=== PATIENT | male | born 1990 | race African-American/Black ===

== ENCOUNTER 2019-12-07 17:37 | Emergency (ER) | payer OTHER ==
[~2019-12-07] VITALS: Ht 175.3 cm; Wt 79.4 kg
[2019-12-07 17:51] VITALS: Ht 175.3 cm; Wt 79.4 kg
[2019-12-07 19:27] VITALS: BP 111/85
== END 2019-12-07 19:27 | disposition home or self-care (01) ==
LOC: ED 17:37
DX: S16.1XXA Strain of muscle, fascia and tendon at neck level, initial encounter (principal); S39.012A Strain of muscle, fascia and tendon of lower back, initial encounter; S20.212A Contusion of left front wall of thorax, initial encounter; M54.6 Pain in thoracic spine; M79.671 Pain in right foot; M79.672 Pain in left foot; V48.5XXA Car driver injured in noncollision transport accident in traffic accident, initial encounter; Y93.I9 Activity, other involving external motion; Y92.488 Other paved roadways as the place of occurrence of the external cause; Y99.8 Other external cause status